=== PATIENT | male | born 1955 | race Caucasian/White ===

== ENCOUNTER 2017-07-17 08:22 | Day surgery (SDC) | payer BC, OTHER ==
[2017-07-17] MEDS ORDERED: Glycopyrrolate 0.2 MG/ML 2 ML SDV IVPUSH ONE (09:19)
[2017-07-17] MEDS ORDERED: Dextrose 5%-Lactated Ringers 1,000 ML IV SCH (09:30)
[2017-07-17] MEDS ORDERED: Propofol 200 MG/20 ML SDV ONE (09:32)
[2017-07-17] MEDS ORDERED: fentaNYL 100 MCG/2 ML SDV ONE (09:32)
[2017-07-17] MEDS ORDERED: Midazolam 1 MG/ML 2 ML SDV ONE (09:33)
[2017-07-17] MEDS ORDERED: Pantoprazole 40 MG Vial IVPUSH ONE (11:21)
[2017-07-17 12:21] VITALS: BP 138/74
--- NOTE | 2017-07-26 12:03 | OR ---
DATE OF PROCEDURE: 07/17/2017 PREOPERATIVE DIAGNOSIS: Dysphagia referable to distal esophagus. POSTOPERATIVE DIAGNOSES: 1. Dysphagia referable to distal esophagus secondary to small hiatal hernia and edema at esophagogastric junction secondary to gastroesophageal reflux disease. 2. Minimal antral gastritis. OPERATIVE PROCEDURES: Esophagogastroduodenoscopy with; 1. Biopsy of esophagogastric junction for histologic evaluation. 2. Biopsies of antrum for CLOtest (10164). 3. Esophageal dilation (40284). ANESTHESIA: IV sedation. INDICATION FOR PROCEDURE: A 61-year-old presenting with some dysphagia referable to distal esophagus. He has had in the past some similar symptoms that have responded to dilation as well as medical management of reflux disease. He is presently not on any medications for reflux. The plan is to proceed with upper GI endoscopy with biopsies and/or dilation as indicated. Potential risks including bleeding and perforation were discussed, and the patient wishes to proceed. DETAILS OF PROCEDURE: The patient was taken to the operating room and placed in a left lateral decubitus position. IV sedation was administered, after which the upper GI endoscope was passed orally through the length of the esophagus and into the stomach with retroflexion view of the fundus, and thereafter through the pyloric channel and into the junction of the third and fourth portions of the duodenum. Findings included normal hypopharynx, larynx, upper esophageal sphincter, and esophageal body. At the EG junction, the patient was noted to have a small hiatal hernia, but a quite wide open esophagogastric junction. This was associated with quite a bit of edema. There was no true stricture present, but the edema was such that this was likely accounting for his sense of dysphagia. Within the stomach, apart from the hiatal hernia, proximal stomach was unremarkable. There was fairly minimal redness and edema in the antrum. The pyloric channel and visualized portions of the duodenum were unremarkable. At this point, biopsies were obtained from the antrum and sent for CLOtest for H. pylori. Multiple biopsies were then obtained from the esophagogastric junction and sent for histologic evaluation. Minimal bleeding from the biopsy sites was seen and the scope was then once again advanced to the stomach, where guidewire was deployed and left in place in the stomach, as the gastroscope was withdrawn. The esophagus was then dilated to help hopefully with his dysphagia with a single passage of 54-[place] Savary dilator. This was held in position for 1 minute, after which the guidewire and dilator were removed. The patient was taken to the recovery room in a satisfactory condition. Plan will be to have the patient start Protonix 40 mg a day and will likely also be given Protonix in the recovery room. I think he should probably be maintained on a long-term antireflux procedure. He is instructed to call should he develop recurrent dysphagia or worsening problems with heartburn. Terrence Crawford MD /[id number]
== END 2017-07-17 12:35 | disposition home or self-care (01) ==
LOC: JP.SDS 08:22
PROVIDERS: ATTEND Surgery
DX: K29.50 Unspecified chronic gastritis without bleeding (principal); K21.0 Gastro-esophageal reflux disease with esophagitis; K44.9 Diaphragmatic hernia without obstruction or gangrene; Z88.8 Allergy status to other drugs, medicaments and biological substances; Z91.018 Allergy to other foods
CPT/HCPCS: 43239; 43248; 87081; 88305; J2250; J2704; J3010; J7042; J3490

== ENCOUNTER 2018-01-20 08:17 | Emergency (ER) | payer OTHER ==
[2018-01-20 08:42] VITALS: BP 128/78
--- NOTE | 2018-01-20 09:35 | EDM.PDOC ---
ED HPI GENERAL MEDICAL PROBLEM - General Chief Complaint: General Stated Complaint: hurts all over Time Seen by Provider: 01/20/18 09:00 Source of Information: Reports: Patient, Family History Limitations: Reports: No Limitations - History of Present Illness INITIAL COMMENTS - FREE TEXT/NARRATIVE: 62-year-old male with generalized myalgias, headache, intermittent fevers, weakness over the past 7-10 days. He was seen in the clinic 4 days ago and it was felt to be allergies and he was started on Zyrtec. He denies shortness of breath or cough, he has decreased appetite but no abdominal pain, diarrhea or vomiting. He has developed nausea in the last 2 days. His joints feel stiff and sore but there is no swelling or erythema. He has been exposed to mosquito bites but does not remember tick bites, he has had no rashes. No dysuria. No peripheral edema. Onset: Gradual Duration: Day(s): (7-10 days) Location: Reports: Generalized Severity: Moderate Improves with: Reports: Other (Ibuprofen breaks his fever and resolves his headache) Associated Symptoms: Reports: Fever/Chills, Headaches, Loss of Appetite, Malaise , Weakness. Denies: Chest Pain, Cough, Rash, Shortness of Breath Generalized Pain Score (Numeric/FACES): 6 - Related Data Allergies Allergy/AdvReac Type Severity Reaction Status Date / Time RED WINE Allergy Severe Chest Uncoded 10/22/15 09:55 Tightness sterates Allergy Severe chest Uncoded 10/22/15 09:55 constriction unable to breathe Home Meds: Home Meds Ascorbic Acid [Vitamin C] 1,000 mg PO DAILY 05/20/13 [History] Bilberry 100 mg PO DAILY 05/20/13 [History] Ibuprofen [Advil Liqui-Gels] 200 mg PO Q6HR PRN 05/20/13 [History] Vitamin B Complex [B-100 Complex] 1 each PO DAILY 05/20/13 [History] Albuterol Sulfate [Proair Hfa] 2 inh IH QID 07/13/17 [History] Pantoprazole Sodium [Protonix] 40 mg PO DAILY 07/13/17 [History] Past Medical History HEENT History: Reports: Impaired Vision Respiratory History: Reports: Sleep Apnea Gastrointestinal History: Reports: GERD, Other (See Below) Other Gastrointestinal History: ulcer Musculoskeletal History: Reports: Other (See Below) Other Musculoskeletal History: disks wearing out in back - Infectious Disease History Infectious Disease History: Reports: Chicken Pox - Past Surgical History HEENT Surgical History: Reports: None Cardiovascular Surgical History: Reports: None GI Surgical History: Reports: Cholecystectomy, EGD Neurological Surgical History: Reports: Other (See Below) Other Neurological Surgeries/Procedures: disks wearing out in back Musculoskeletal Surgical History: Reports: Arthroscopic Knee Social & Family History - Tobacco Use Smoking Status *Q: Never Smoker - Caffeine Use Caffeine Use: Reports: Soda - Recreational Drug Use Recreational Drug Use: No ED ROS GENERAL - Review of Systems Review Of Systems: See Below Constitutional: Reports: Fever, Chills, Malaise, Weakness, Decreased Appetite HEENT: Denies: Eye Pain, Throat Pain, Vision Change Respiratory: Denies: Shortness of Breath, Cough Cardiovascular: Denies: Chest Pain Endocrine: Reports: Fatigue GI/Abdominal: Reports: Nausea. Denies: Abdominal Pain, Constipation, Diarrhea, Vomiting : Reports: No Symptoms Musculoskeletal: Reports: Muscle Pain (Generalized) Skin: Reports: No Symptoms Neurological: Reports: Dizziness, Headache Psychiatric: Reports: No Symptoms ED EXAM, GENERAL - Physical Exam Exam: See Below Exam Limited By: No Limitations General Appearance: Alert, No Apparent Distress Eye Exam: Bilateral Eye: Normal Inspection Throat/Mouth: Normal Inspection Head: Atraumatic Neck: Normal Inspection. No: Lymphadenopathy (R), Lymphadenopathy (L) Respiratory/Chest: No Respiratory Distress, Lungs Clear Cardiovascular: Regular Rate, Rhythm GI/Abdominal: Soft, Non-Tender Extremities: Normal Inspection. No: Pedal Edema Neurological: Alert, Oriented, No Motor/Sensory Deficits Psychiatric: Normal Affect, Normal Mood Skin Exam: Warm, Dry Course - Vital Signs Last Recorded V/S: Last Vital Signs Temp 98.6 F 01/20/18 09:45 Pulse 92 01/20/18 09:45 Resp 12 01/20/18 09:45 BP 128/78 01/20/18 09:45 Pulse Ox 94 L 01/20/18 09:45 - Orders/Labs/Meds Orders: Active Orders 24 hr Category Date Time Status [facility] GRANULOCYTIC [facility] Routine Lab 01/20/18 10:17 Received LYME, TOTAL AB TEST/REFLEX Stat Lab 01/20/18 10:30 Received UA W/MICROSCOPIC [URIN] Urgent Lab 01/20/18 09:31 Ordered Labs: Laboratory Tests 01/20/18 01/20/18 01/20/18 Range/Units 09:08 09:20 09:31 WBC 7.5 (4.5-11.0) K/uL RBC 5.09 (4.30-5.90) M/uL Hgb 15.8 H D (12.0-15.0) g/dL Hct 44.2 (40.0-54.0) % MCV 87 (80-98) fL MCH 31 (27-31) pg MCHC 36 (32-36) % Plt Count 177 (150-400) K/uL Neut % (Auto) 66 (36-66) % Lymph % (Auto) 19 L (24-44) % [place] % (Auto) 12 H (2-6) % Eos % (Auto) 2 (2-4) % Baso % (Auto) 1 (0-1) % Sodium 138 L (140-148) mmol/L Potassium 4.1 (3.6-5.2) mmol/L Chloride 102 (100-108) mmol/L Carbon Dioxide 24 (21-32) mmol/L Anion Gap 16.1 H (5.0-14.0) mmol/L BUN 18 (7-18) mg/dL Creatinine 1.2 (0.8-1.3) mg/dL Est Cr Clr Drug Dosing 67.59 mL/min Estimated GFR (MDRD) > 60 (>60) Glucose 128 H (74-106) mg/dL Calcium 8.9 (8.5-10.1) mg/dL Total Bilirubin 0.8 (0.2-1.0) mg/dL AST 63 H (15-37) U/L ALT 86 H (12-78) U/L Alkaline Phosphatase 94 (46-116) U/L Total Protein 7.8 (6.4-8.2) g/dL Albumin 3.4 (3.4-5.0) g/dL Globulin 4.4 H (2.3-3.5) g/dL Albumin/Globulin Ratio 0.8 L (1.2-2.2) Urine Color Yellow Urine Appearance Slightly cloudy Urine pH 5.0 (4.5-8.0) Ur Specific [place] 1.025 (1.008-1.030) Urine Protein Trace (NEGATIVE) mg/dL Urine Glucose (UA) Normal (NEGATIVE) mg/dL Urine Ketones Negative (NEGATIVE) mg/dL Urine Occult Blood Moderate (NEGATIVE) Urine Nitrite Negative (NEGAITVE) Urine Bilirubin Negative (NEGATIVE) Urine Urobilinogen Normal (NORMAL) mg/dL Ur Leukocyte Esterase Negative (NEGATIVE) Urine RBC 0-5 (0-5) Urine WBC 0-5 (0-5) Ur Epithelial Cells Rare Amorphous Sediment Few Urine Bacteria Not seen Urine Mucus Moderate - Re-Assessments/Exams Free Text/Narrative Re-Assessment/Exam: 01/20/18 09:35 CBC, CMP and UA were obtained. 01/20/18 10:13 Labs were reassuring, CBC was normal other than a mild monocyte increase in percentage. CMP showed slight elevation and ALT and AST, UA was negative. Lyme' s disease and ehrlichiosis titers were added, patient will be started on doxycycline pending lab results. Departure - Departure Time of Disposition: 10:21 Disposition: Home, Self-Care 01 Condition: Good Clinical Impression: Febrile illness Headache Qualifiers: Headache type: unspecified Headache chronicity pattern: acute headache Intractability: not intractable Qualified Code(s): R51 - Headache - Discharge Information Instructions: Fever, Adult Referrals: PCP,None [Primary Care Provider] - Forms: ED Department Discharge Care Plan Goals: Take antibiotic twice a day and you will be informed of your tick disease tests in the next several days. Continue antibiotic for at least 7 days if improving. Return sooner if worsening such as persistent vomiting or increased pain. - My Orders Last 24 Hours: My Active Orders 01/20/18 09:31 UA W/MICROSCOPIC [URIN] Urgent 01/20/18 10:17 [facility]AN GRANULOCYTIC [facility] Routine 01/20/18 10:30 LYME, TOTAL AB TEST/REFLEX Stat - Assessment/Plan Last 24 Hours: My Active Orders 01/20/18 09:31 UA W/MICROSCOPIC [URIN] Urgent 01/20/18 10:17 HUMAN GRANULOCYTIC [facility]ID-[facility] Routine 01/20/18 10:30 LYME, TOTAL AB TEST/REFLEX Stat
[2018-01-24 19:10] LABS: LYME IGG/IGM AB <0.91 ISR (0.00-0.90)
== END 2018-01-20 10:21 | disposition home or self-care (01) ==
LOC: JP.ED 08:17
DX: R50.9 Fever, unspecified (principal); R51 Headache; Z79.899 Other long term (current) drug therapy; Z91.018 Allergy to other foods; Z91.09 Other allergy status, other than to drugs and biological substances
CPT/HCPCS: 36415; 80053; 81001; 85025; 86618; 86666; 99284

== ENCOUNTER 2025-02-22 09:11 | Emergency (ER) | payer MEDICARE, BC ==
[2025-02-22 09:32] VITALS: BP 113/69; PULSE 84
== END 2025-02-22 11:20 | disposition home or self-care (01) ==
LOC: JP.ED 09:11
DX: S83.91XA Sprain of unspecified site of right knee, initial encounter (principal); Z91.048 Other nonmedicinal substance allergy status; Z88.1 Allergy status to other antibiotic agents; W01.0XXA Fall on same level from slipping, tripping and stumbling without subsequent striking against object, initial encounter; Y93.01 Activity, walking, marching and hiking
CPT/HCPCS: 73562; 99283; A9270

== ENCOUNTER 2025-03-16 07:59 | Day surgery (SDC) | payer MEDICARE, BC ==
[2025-03-16] MEDS ORDERED: fentaNYL 250 MCG/5 ML SDV ONE (08:13)
[2025-03-16] MEDS ORDERED: Dexamethasone 4 MG/ML SDV ONE (08:16)
[2025-03-16] MEDS ORDERED: Glycopyrrolate 0.2 MG/ML 5 ML MDV ONE (08:16)
[2025-03-16] MEDS ORDERED: Succinylcholine 200 MG/10 ML MDV ONE (08:16)
[2025-03-16] MEDS ORDERED: Ondansetron 4 MG/2 ML SDV ONE (08:16)
[2025-03-16] MEDS ORDERED: Propofol 200 MG/20 ML SDV ONE (08:16)
[2025-03-16 08:25] LABS: PLATELET COUNT,PLT 235.0 K/uL (130-375); RED BLOOD CELL COUNT 5.12 M/uL (4.14-5.76); WHITE BLOOD CELL COUNT,WBC 5.9 K/uL (3.2-11.0)
[2025-03-16] MEDS: Nozin Nasal Sanitizer NASBOTH ONE (08:41)
[2025-03-16 08:50] LABS: BLOOD UREA NITROGEN,BUN 20.0 mg/dL (7-18); CARBON DIOXIDE,CO2 29.0 mmol/L (21-32); CHLORIDE,CL 104.0 mmol/L (100-108); CREATININE 1.1 mg/dL (0.8-1.3); EST CRCL DRUG DOSING (CG) 67.29 mL/min; ESTIMATED GFR 74.0 mL/min (>60); GLUCOSE RANDOM 129.0 mg/dL (74-106); POTASSIUM,K 4.1 mmol/L (3.6-5.2); SODIUM,NA 142.0 mmol/L (140-148)
[2025-03-16] MEDS: Lactated Ringers 1,000 ML IV SCH (09:06)
[2025-03-16] MEDS ORDERED: Ketorolac 30 MG/ML SDV ONE (11:40)
[2025-03-16] MEDS ORDERED: fentaNYL 100 MCG/2 ML SDV ONE (11:44)
[2025-03-16] MEDS: Acetaminophen/HYDROcodone 325-5 MG Tab PO ONE (13:23)
[2025-03-16 14:06] VITALS: BP 143/79; PULSE 64
== END 2025-03-16 14:17 | disposition home or self-care (01) ==
LOC: JP.SDS 07:59
PROVIDERS: ATTEND Specialist
DX: S83.231A Complex tear of medial meniscus, current injury, right knee, initial encounter (principal); M22.41 Chondromalacia patellae, right knee; I10 Essential (primary) hypertension
CPT/HCPCS: 29881; 36415; 80048; 85027; A9270; J0330; J0665; J0690; J1100; J1596; J1885; J2405; J2704; J2710; J3010; J7120; J3490